=== PATIENT | female | born 1995 | race Hispanic/Latino ===

== ENCOUNTER 2022-08-25 08:25 | Outpatient (CLI) | payer OTHER | END 2022-08-25 08:26 | disposition home or self-care (01) | LOC: CSHULT 08:25 | PROVIDERS: ATTEND Nurse Practitioner Women's Health | DX: Z34.82 Encounter for supervision of other normal pregnancy, second trimester (principal); Z3A.20 20 weeks gestation of pregnancy | CPT/HCPCS: 76805 ==

== ENCOUNTER 2022-12-16 08:50 | Day surgery (SDC) | payer OTHER ==
[2022-12-16 09:46] VITALS: BMI 26.8
== END 2022-12-16 14:52 | disposition home or self-care (01) ==
LOC: CSHLD/OP 08:50
PROVIDERS: ATTEND Family Medicine
DX: O47.03 False labor before 37 completed weeks of gestation, third trimester (principal); Z3A.36 36 weeks gestation of pregnancy
CPT/HCPCS: 99284

== ENCOUNTER 2022-12-19 02:44 | Inpatient (IN) | payer MEDICAID, OTHER, SELFPAY ==
[2022-12-19 03:03] VITALS: BMI 26.8
[2022-12-19] MEDS ORDERED: Ondansetron PF 4 MG/2 ML Vial IVP PRN ×2 (03:21→05:19)
[2022-12-19] MEDS ORDERED: fentaNYL 50 mcg/mL 1 mL Vial SLOW IVP PRN (03:21)
[2022-12-19] MEDS ORDERED: Misoprostol 200 MCG TAB PR PRN (03:21)
[2022-12-19] MEDS ORDERED: Acetaminophen 500 MG TAB PO PRN (03:21)
[2022-12-19] MEDS ORDERED: Lidocaine 1% (PF) 30 ML VIAL SC PRN (03:21)
[2022-12-19] MEDS ORDERED: HYDROcodone/Acetaminophen 5/325 mg Tablet PO PRN ×2 (03:21→05:19)
[2022-12-19] MEDS ORDERED: Ibuprofen 800 MG TAB PO PRN (03:21)
[2022-12-19] MEDS ORDERED: hydrALAZINE 20 MG/ML VIAL SLOW IVP PRN ×2 (03:21→05:19)
[2022-12-19] MEDS ORDERED: Methylergonovine 0.2 MG/ML VIAL IM PRN (03:21)
[2022-12-19] MEDS ORDERED: Tranexamic Acid 1,000 MG/10 ML VIAL IVP PRN (03:21)
[2022-12-19] MEDS ORDERED: Carboprost 250 MCG/ML AMP IM PRN (03:21)
[2022-12-19] MEDS ORDERED: Promethazine HCl 25 MG/ML VIAL IM PRN (03:21)
[2022-12-19] MEDS ORDERED: Diphenoxylate HCl/Atropine Tablet PO PRN (03:21)
[2022-12-19] MEDS ORDERED: Lactated Ringer's 1,000 ML IV SCH (03:30)
[2022-12-19] MEDS ORDERED: Penicillin G Potassium 5 MILL.UNITS in Sodium Chloride 0.9% 100 ML IVPB SCH (03:30)
[2022-12-19] MEDS ORDERED: Oxytocin 30 units/NS 500 ML 500 ML IV SCH ×3 (03:30)
[2022-12-19 03:36] LABS: Hematocrit 36.1 % (34.9-44.5); Hemoglobin 13.1 g/dL (12.0-15.5); Mean Corpuscular HGB CONC 36.3 g/dL (32.0-36.0); Mean Corpuscular Hemoglobin 30.4 pg (27.0-33.0); Mean Corpuscular Volume 83.8 fl (81.6-98.3); Mean Platelet Volume 10.6 fl (7.4-10.4); Platelet Count 213 10x3/uL (150-450); RBC Distribution Width 13.5 % (11.5-14.5); Red Blood Cell (RBC) Count 4.31 10x6/uL (3.90-5.03); White Blood Cell (WBC) Count 8.2 10x3/uL (3.5-10.5)
[2022-12-19 04:09] LABS: HBSAg Index 0.13 S/CO (0-0.99); Hep B Surf Ag - L&D Non-Reactive S/CO (NonReactive)
[2022-12-19 04:11] LABS: Syphilis Antibody Nonreactive (Nonreactive); Syphilis Antibody Index 0.03 S/CO (<1.00 Non-Reactive)
[2022-12-19] MEDS ORDERED: Boostrix 0.5 ML (Tdap) VIAL (>/=7 yrs of age) IM ONE (05:19)
[2022-12-19] MEDS ORDERED: diphenhydrAMINE 25 MG CAP PO PRN (05:19)
[2022-12-19] MEDS ORDERED: Bisacodyl 10 MG SUPP PR PRN (05:19)
[2022-12-19] MEDS ORDERED: Lanolin Ointment 7 GM TUBE TOP PRN (05:19)
[2022-12-19] MEDS ORDERED: Benzocaine-Menthol 82.5 ML CAN TOP PRN (05:19)
[2022-12-19] MEDS ORDERED: Milk Of Magnesia 30 ML UDCUP PO PRN (05:19)
[2022-12-19] MEDS ORDERED: Penicillin G 2.5 MILL.units 2.5 MILL.UNITS in Premix Bag 1 BAG IVPB SCH (07:30)
[2022-12-19] MEDS: Docusate 100 MG CAP PO SCH ×2 (09:20→21:05)
[2022-12-19] MEDS: Prenatal Vitamin 1 TAB PO SCH (09:20)
[2022-12-19] MEDS: Ferrous Sulfate 325 MG TAB PO SCH ×2 (09:20→19:04)
[2022-12-19] MEDS: Ibuprofen 800 MG TAB PO SCH ×2 (14:41→21:05)
[2022-12-20] MEDS: Ibuprofen 800 MG TAB PO SCH ×3 (05:26→21:43)
[2022-12-20] MEDS: Prenatal Vitamin 1 TAB PO SCH (08:16)
[2022-12-20] MEDS: Ferrous Sulfate 325 MG TAB PO SCH ×2 (08:16→18:37)
[2022-12-20] MEDS: Docusate 100 MG CAP PO SCH ×2 (08:16→21:43)
[2022-12-21] MEDS: Ibuprofen 800 MG TAB PO SCH (05:57)
[2022-12-21] MEDS: Ferrous Sulfate 325 MG TAB PO SCH (07:29)
[2022-12-21 08:01] VITALS: BP 118/77; TEMP 98
[2022-12-21] MEDS: Docusate 100 MG CAP PO SCH (09:09)
[2022-12-21] MEDS: Prenatal Vitamin 1 TAB PO SCH (09:09)
== END 2022-12-21 12:05 | disposition home or self-care (01) | DRG 807 ==
LOC: CSHLD/OP 02:44 → CSHLD 04:30 → CSHPP 08:40
PROVIDERS: ADMIT Family Medicine; ATTEND Family Medicine
PROC: 10E0XZZ Delivery of Products of Conception, External Approach (ICD-10-PCS; principal; 2022-12-19)
PROC: 0KQM0ZZ Repair Perineum Muscle, Open Approach (ICD-10-PCS; 2022-12-19)
DX: O99.824 Streptococcus B carrier state complicating childbirth (principal); Z37.0 Single live birth; Z3A.36 36 weeks gestation of pregnancy; O69.81X0 Labor and delivery complicated by cord around neck, without compression, not applicable or unspecified; O70.1 Second degree perineal laceration during delivery
CPT/HCPCS: 36415; 85027; 86780; 86850; 86900; 86901; 87340; 99285; J2001; J2540; J2590; J3490